=== PATIENT | female | born 1975 | race Caucasian/White ===

== ENCOUNTER 2018-01-22 06:07 | Inpatient (IN) ==
[2018-01-22] MEDS ORDERED: Chlorhexidine Gluconate 2% 1 Pack (2 Cloths) TOPICAL SCH (06:45)
[2018-01-22] MEDS ORDERED: Metoprolol Tartrate 25 MG Tablet PO SCH (06:45)
[2018-01-22] MEDS ORDERED: Vancomycin Inj 1 GM/200 ML PIGGYBACK IV.SIG SCH (07:00)
[2018-01-22] MEDS ORDERED: Vancomycin Inj 1,000 MG in Sodium Chlor 0.9% Inj 250 ML IV.SIG SCH (07:00)
[2018-01-22] MEDS ORDERED: Sodium Chlor 0.9% Inj 500 ML IV.SIG SCH (07:00)
[2018-01-22 07:12] LABS: Baso # (Auto) 0.1 th/mm3 (0.0-0.2); Baso % (Auto) 0.9 % (0.0-2.0); Eos # (Auto) 0.1 th/mm3 (0.0-0.4); Eos % (Auto) 1.7 % (0.0-4.0); Hematocrit 38.3 % (35.0-46.0); Lymph # (Auto) 2.1 th/mm3 (1.0-4.8); Mean Corpuscular HGB Conc 33.9 % (32.0-36.0); Mean Corpuscular Hemoglobin 32.3 pg (27.0-34.0); Mean Corpuscular Volume 95.2 fL (80.0-100.0); Mean Platelet Volume 7.8 fL (7.0-11.0); Mono # (Auto) 0.3 th/mm3 (0.0-0.9); Mono % (Auto) 5.5 % (0.0-8.0); Neut # (Auto) 3.5 th/mm3 (1.8-7.7); Neut % (Auto) 57.9 % (16.0-70.0); Platelet Count 316 th/mm3 (150-450); Red Blood Count 4.03 mil/mm3 (4.00-5.30); Red Cell Distribution Width 12.4 % (11.6-17.2); White Blood Count 6.1 th/mm3 (4.0-11.0)
[2018-01-22] MEDS ORDERED: Bupivacaine/Epinephrine Inj 0.25% 50 ML Vial ONE (07:29)
[2018-01-22 07:51] LABS: Calcium 8.2 mg/dL (8.5-10.1); Carbon Dioxide 24.8 meq/L (21.0-32.0); Potassium 4.7 meq/L (3.5-5.1)
[2018-01-22] MEDS ORDERED: Ketorolac Inj 30 MG/ML (IVP) Vial IV.PUSH ONE (12:00)
[2018-01-22] MEDS ORDERED: Lidocaine PF 1% Inj 5 ML Syringe INFILTRATN ONE (12:00)
[2018-01-22] MEDS ORDERED: Neostigmine Inj 5 MG/5 ML Syringe IV.PUSH ONE (12:00)
[2018-01-22] MEDS ORDERED: Glycopyrrolate Inj 1 MG/5 ML Syringe IV.PUSH ONE (12:00)
[2018-01-22] MEDS ORDERED: *morphine SULFATE 10 MG/ML PERIprocedure ONLY ONE (12:34)
[2018-01-22] MEDS ORDERED: *Ondansetron Inj 4 MG/2 ML Vial PERIprocedural Use ONLY ONE (12:36)
[2018-01-22] MEDS ORDERED: Morphine Inj 30 MG/30 ML PCA.VIAL PCA ONE (12:49)
[2018-01-22] MEDS ORDERED: Morphine Inj 30 MG/30 ML PCA.VIAL PCA PRN (12:54)
[2018-01-22] MEDS ORDERED: Bisacodyl 10 MG Supp RECTAL PRN (12:54)
[2018-01-22] MEDS ORDERED: Promethazine 25 MG Supp RECTAL PRN (12:54)
[2018-01-22] MEDS ORDERED: Post-op Orders (for Pharmacy) OTHER ONE (12:54)
[2018-01-22] MEDS ORDERED: Naloxone Inj 0.4 MG/ML Vial IV.PUSH PRN ×2 (12:54)
[2018-01-22] MEDS ORDERED: Morphine Inj 4 MG/ML Vial IV.PUSH PRN (12:54)
[2018-01-22] MEDS: Morphine Inj 30 MG/30 ML PCA.VIAL PCA PRN (13:00)
--- NOTE | 2018-01-22 13:08 | P.OP ---
- Preoperative Diagnosis (1) Recurrent incisional hernia - Postoperative Diagnosis (1) Recurrent incisional hernia Date of procedure: 01/22/18 Procedure: Laparoscopic lysis of adhesions Laparoscopic removal previous mesh Laparoscopic incisional hernia repair with Goretex dual mesh 18 x 24 cm Implants: Goretex dualmesh 18 x 24 cm Anesthesia: GETA Surgeon: Bart Linda MD Tank Cleaner: Minerva Escobar CFA Estimated blood loss (mL): 50 IV fluids (mL): 1,500
[2018-01-22] MEDS: Ketorolac Inj 30 MG/ML (IVP) Vial IV.PUSH PRN ×2 (18:52→22:48)
[2018-01-22] MEDS: Famotidine 20 MG Tablet PO SCH (22:42)
[2018-01-22] MEDS: Senna/Docusate Sodium 8.6/50 MG Tablet PO SCH (22:43)
[2018-01-23] MEDS: Senna/Docusate Sodium 8.6/50 MG Tablet PO SCH ×2 (09:34→22:13)
[2018-01-23] MEDS: Famotidine 20 MG Tablet PO SCH ×2 (09:34→22:13)
--- NOTE | 2018-01-23 12:02 | P.PN ---
Subjective Interval history: Minimal pain; wants to go home. Physical Exam Vital signs: Vital Signs 01/22/18 12:24 01/22/18 12:30 01/22/18 12:45 Temperature 98.5 F Pulse Rate 84 93 H 77 Respiratory Rate 16 22 20 Blood Pressure 100/60 102/57 L 102/56 L Pulse Oximetry 95 95 94 L 01/22/18 13:00 01/22/18 13:15 01/22/18 13:30 Temperature Pulse Rate 88 79 82 Respiratory Rate 20 20 21 Blood Pressure 109/61 109/61 105/59 L Pulse Oximetry 96 94 L 95 01/22/18 14:00 01/22/18 14:45 01/22/18 16:00 Temperature 97.8 F 97.9 F Pulse Rate 82 95 H 84 Respiratory Rate 16 17 14 Blood Pressure 100/61 101/62 107/56 L Pulse Oximetry 96 97 96 01/22/18 20:00 01/23/18 00:00 01/23/18 04:00 Temperature 98.3 F 98.4 F 98.1 F Pulse Rate 76 77 75 Respiratory Rate 16 16 16 Blood Pressure 100/54 L 105/59 L 104/55 L Pulse Oximetry 100 100 100 01/23/18 08:00 Temperature 98.3 F Pulse Rate 85 Respiratory Rate 18 Blood Pressure 106/55 L Pulse Oximetry 99 Intake & Output 01/22/18 01/23/18 01/23/18 18:59 06:59 18:59 Intake Total 2098 / 2098 1602 / 1602 Output Total 50 / 50 Balance 2047 / 2047 1602 / 1602 Weight 68.4 kg Intake: IV 1568 / 1568 782 / 782 LR 1000 mL Inj 1,000 ML @ 125 218 / 218 782 / 782 mls/hr IV.CONT .Q8H [facility] Rx#: [id number] LR 1000 mL Inj 1,000 ML @ 30 1000 / 1000 mls/hr IV.SIG .Q24H [facility] Rx#: [id number] Vancomycin Inj 1,000 MG In NS 250 / 250 Inj 250 ML @ 250 mls/hr IV.SIG BELT LOOP CUTTER [facility] Rx#:[id number] Ancef Inj 1,000 MG In NS Inj 100 / 100 100 ML @ 200 mls/hr IV.SIG BELT LOOP CUTTER [facility] Rx#:[id number] Oral 820 / 820 Anesthesia Amount 500 / 500 Output: Urine 0 / 0 Estimated Blood Loss 50 / 50 Other: # Voids 2 4 - Routine Abdominal Exam Present: soft, tenderness (Nontender), wound (Steri-Strips dry without drainage) Results - Labs CBC & Chem 7: 01/22/18 06:53 01/22/18 06:53 Assessment and Plan - Assessment (1) Recurrent incisional hernia Code(s): K43.2 - Incisional hernia without obstruction or gangrene Status: Acute Plan: Postop day #1; good pain control. We will transition to p.o. pain meds and keep on full liquids for now. Advance diet when she has bowel activity - Plan Discussed Condition With: Patient Family-mother, father, sister present Nurse Ivon Fields. - Attending Attestation I attest that I had a [id number] encounter with the patient on the same day, and personally performed and documented my assessment and findings in the medical record. The following services were provided during this hospital visit: Chart data review, vital sign assessments/reviewing monitor data Review of consultation notes if present Medication orders/review and/or management Ordering and/or reviewing lab tests Ordering and/or interpreting/reviewing x-rays and/or diagnostic studies Care of the patient and discussion of the patient with the care team Documentation time To help prompt me to consider important information that might be impacting today's encounter and assessment, Information from prior notes written by myself or my colleagues may have been "brought forward/copy and pasted" into today's note.
[2018-01-23] MEDS: Enoxaparin Inj 40 MG/0.4 ML Syringe SQ SCH ×2 (13:35→16:57)
[2018-01-23] MEDS: Ketorolac Inj 30 MG/ML (IVP) Vial IV.PUSH PRN ×2 (13:35→19:52)
[2018-01-24] MEDS: Ketorolac Inj 30 MG/ML (IVP) Vial IV.PUSH PRN ×4 (03:16→21:47)
[2018-01-24] MEDS: Morphine Inj 30 MG/30 ML PCA.VIAL PCA PRN (03:23)
[2018-01-24] MEDS: Famotidine 20 MG Tablet PO SCH ×2 (08:27→21:47)
[2018-01-24] MEDS: Senna/Docusate Sodium 8.6/50 MG Tablet PO SCH ×2 (08:27→21:47)
--- NOTE | 2018-01-24 11:04 | P.PNGS ---
Subjective Patient reports: still having pain (doing better, small flatus) Physical Exam Vital signs: Vital Signs 01/23/18 12:00 01/23/18 16:00 01/23/18 20:00 Temperature 97.3 F L 98.0 F 98 F Pulse Rate 75 71 66 Respiratory Rate 16 14 18 Blood Pressure 113/53 L 102/57 L 106/56 L Pulse Oximetry 100 98 96 01/24/18 00:00 01/24/18 08:00 Temperature 98.1 F 97.2 F L Pulse Rate 71 71 Respiratory Rate 18 14 Blood Pressure 103/60 111/58 L Pulse Oximetry 97 99 Intake & Output 01/23/18 01/24/18 01/24/18 18:59 06:59 18:59 Intake Total 800 / 800 1000 / 1000 Balance 800 / 800 1000 / 1000 Intake: IV 1000 / 1000 LR 1000 mL Inj 1,000 ML @ 42 1000 / 1000 mls/hr IV.CONT .[id number] [facility] Rx# :[id number] Oral 800 / 800 Other: # Voids 4 # Bowel Movements 0 - Routine Respiratory Exam Present: CTA bilaterally - Routine Cardiovascular Exam Present: RRR - Routine Abdominal Exam Present: soft (incisional tenderness) Assessment and Plan - Assessment (1) Recurrent incisional hernia Code(s): K43.2 - Incisional hernia without obstruction or gangrene Status: Acute Plan: s/p ventral hernia repair PLAN Advance to soft diet oob is pain control d/c client account representative, po meds dvt ppx
[2018-01-24] MEDS: Enoxaparin Inj 40 MG/0.4 ML Syringe SQ SCH (14:11)
[2018-01-25] MEDS: Ketorolac Inj 30 MG/ML (IVP) Vial IV.PUSH PRN (06:30)
[2018-01-25] MEDS: Famotidine 20 MG Tablet PO SCH (08:28)
[2018-01-25] MEDS: Senna/Docusate Sodium 8.6/50 MG Tablet PO SCH (08:28)
[2018-01-25 09:14] VITALS: RESP 17
[2018-01-25] MEDS ORDERED: Polyethylene Glycol 3350 17 GM Packet PO ONE (09:25)
--- NOTE | 2018-01-25 10:27 | P.DS ---
Date of admission: 01/22/18 15:17 Primary care physician: Tano Saini MD, R3 Attending physician on discharge: Bart Linda Anticipated date of discharge: 01/25/18 Brief History from admission: 42 year old female s/p laparoscopic repair of incisional hernia. DS: Diagnosis - Discharge Diagnosis (1) Recurrent incisional hernia Status: Acute DS: Medications - Discharge Medications Prescriptions: hydrocodone-acetaminophen 1 tab PO Q4H PRN #18 tab PRN Reason: acute post op pain DS: Summary Hospital Course: This is a 42-year-old female status post laparoscopic repair of recurrent incisional hernia. The patient's pain was controlled using oral pain medication. The patient was able to tolerate a regular soft diet. The patient will follow-up in the office as indicated on the discharge information. - Time Spent with Patient Total time spent providing and/or coordinating discharge services: Less than 30 minutes - Quality: VTE Deep Vein Thrombosis/Pulmonary Embolism Present on Admission: No Exam Vital signs: Vital Signs 01/24/18 12:00 01/24/18 16:00 01/24/18 20:00 Temperature 97.9 F 97.7 F 97.3 F L Pulse Rate 73 66 70 Respiratory Rate 16 18 18 Blood Pressure 120/72 106/61 113/71 Pulse Oximetry 97 97 100 01/25/18 00:00 01/25/18 08:00 Temperature 97.9 F 97.5 F L Pulse Rate 67 66 Respiratory Rate 18 17 Blood Pressure 105/54 L 102/56 L Pulse Oximetry 98 97 Intake & Output 01/24/18 01/25/18 01/25/18 18:59 06:59 18:59 Intake Total 1000 / 1000 Balance 1000 / 1000 Weight 68.1 kg Intake: IV 1000 / 1000 LR 1000 mL Inj 1,000 ML @ 42 1000 / 1000 mls/hr IV.CONT .[id number] [facility] Rx# :[id number] Other: # Voids 1 Narrative: Alert and awake Cardio: RRR Resp: CTAB Abd: soft minimally tender; lap sites with Steri Strips in place; abdominal binder in place Results Procedures completed during hospitalization: Laparoscopic repair of recurrent incisional hernia. Pending studies at discharge: Pending at discharge 01/22/18 13:51 Surgical [PTH] Routine Discharge Plan - Discharge Disposition Patient Disposition: 01 Discharge Home - Discharge Condition Condition: Good - Discharge Details Anticipated Discharge Date: 01/25/18 Discharge Comment: rx on chart - Physicians Team Primary Care Provider: Tano Saini Attending Provider: Bart Linda - Rxs /Orders / Referrals /Forms Prescriptions: New hydrocodone-acetaminophen 5-325 mg Tablet 1 tab PO Q4H PRN (Reason: acute post op pain ) Qty: 18 RF: 0 Continue lisdexamfetamine [Vyvanse] 30 mg Capsule 30 mg PO QAM Referrals: Bart Linda MD [GENERAL SURGERY] - See Instructions (Appt set for January 28 at 11:20AM) Tano Saini MD, R3 [Primary Care Provider] - See Instructions
[2018-01-25 12:22] VITALS: BP 104/63; PULSE 67; TEMP 97.7; O2SAT 98
[2018-01-25] MEDS: Enoxaparin Inj 40 MG/0.4 ML Syringe SQ SCH (12:31)
--- NOTE | 2018-01-25 12:41 | MP ---
cc: Bart Linda MD DATE OF OPERATION: 01/22/2018 PROCEDURES: 1. Laparoscopic lysis of adhesions. 2. Laparoscopic removal of previously placed mesh with hernia in center. 3. Laparoscopic recurrent incisional hernia repair with [place]-Gui DualMesh 18 x 24 cm. PREOPERATIVE DIAGNOSIS: Recurrent incisional hernia postoperative, reducible. POSTOPERATIVE DIAGNOSIS: Recurrent incisional hernia postoperative, reducible. ANESTHESIA: General endotracheal. SURGEON: Bart Linda MD ESTIMATED BLOOD LOSS: 50 mL FLUIDS: 1500 mL crystalloid. COMPLICATIONS: None. DRAINS: None. SPECIMENS: Previously placed mesh to pathology. PROCEDURE IN DETAIL: The patient was taken to the operating room, and placed on the operating table in the supine position. After an adequate level of general endotracheal anesthesia was achieved, the abdomen was prepped and draped. A timeout was taken confirming the correct patient, site, and procedure to be performed. The left upper quadrant was infiltrated with local anesthetic and an incision made laterally and below the costal margin. Dissection was carried out between the muscle layers and the peritoneal cavity entered directly. A 12 mm balloon trocar was inserted and the balloon inflated. The abdomen was insufflated. Adhesions were noted on the anterior abdominal wall and the patient's previously placed mesh. A 5 mm trocar was placed in the left lower quadrant and entered the abdominal cavity under direct vision uneventfully. While observing via this trocar site, a right lower quadrant 5 mm trocar was also placed under direct vision uneventfully. This allowed for retraction of the structures into the abdomen and these were taken down with gentle blunt dissection and minimal use of the Harmonic scalpel. This allowed for dissection of all of the adhesions off of the anterior abdominal wall. When this had been nearly completed, a right upper quadrant 5 mm trocar was also placed under direct vision. Remaining adhesions were taken down and at this point, the patient's previously placed mesh was seen to have failed in the middle. The mesh was then removed utilizing the Harmonic scalpel and blunt dissection. This required meticulous dissection and the entire piece of mesh was thus removed. This piece of mesh was taken out via the 12 mm left upper quadrant trocar site, after removing the trocar. The mesh was passed off the table. The anterior abdominal wall was reassessed and seemed to be hemostatic at this point. The defect was measured and an 18 x 24 cm [place]-Gui DualMesh was chosen to completely overlap the previously placed mesh defect. This allowed for at least 5 cm of overlap all the way around. The mesh was placed into the abdominal cavity, after placing four 0 [place] sutures in the mesh. The mesh was rolled up and placed into the abdominal cavity. The mesh was unfurled and fixed at 4 points with the [place] sutures. This created a nice harpal configuration and following this, the mesh was fixed in between these areas with the Capture mesh fixation device. A second tacking device was required to complete the procedure. When this was completed, 4 additional sutures were placed between the previous sutures on the edge of the mesh. The suture passer was used in order to accomplish this. When this was completed, the entire defect was seen to be all covered by at least 5 cm of mesh beyond the edge of the previous defects. When this was completed and with hemostasis assured, insufflation was discontinued and the trocars were removed. The fascia was closed at the left upper quadrant trocar site with 0 Vicryl suture. 4-0 Vicryl was used to close all 4 trocar sites in the skin. All sites were dressed with Steri-Strips. An abdominal binder was applied, the patient was extubated and taken back to the recovery room in stable condition. Sponge and needle counts reported to be correct. MD DANIELA Brock/re , 10:52 PM , 10:59 PM JOVAN
== END 2018-01-25 15:00 | disposition home or self-care (01) ==
LOC: HOR 06:07 → HSDI 15:17 → N07 15:34
PROVIDERS: ADMIT Surgery Trauma Surgery; ATTEND Surgery Trauma Surgery